=== PATIENT | female | born 1955 | race Caucasian/White ===

== ENCOUNTER → 2018-12-05 | Outpatient (CLI) | payer OTHER ==
[~2018-12-05] VITALS: Ht 152.4 cm; Wt 124.7 kg
[~2018-12-05] MED LIST: ADVAIR 250-501 EACH INH; ALBUTEROL NEB; CELEBREX 200 M200 M1 PO; CELEXA PO; CLONAZEPAM 0.50.5 M1 PO; CLONAZEPAM PO; CYMBALTA PO; CYMBALTA60 MG PO; DESYREL50 MG; DESYREL50 MG PO; ESTRADIOL 1 MG T1 M1 PO; FLEXERIL PO; FLONASE NS; GLUCOPHAGE XR500 MG PO; HYDROCODON-ACE1 EAC7; LAMICTAL PO; LAMICTAL100 MG PO; LEVAQUIN 500 M500 MG PO; LIPITOR 20 MG T20 M1 PO; LISINOPRIL30 MG PO; LISINOPRIL40 MG PO; METHOTREXATE 22.5 MG PO; NORCO 5-325 TA1 EACH PO; PHENERGAN 25 MG25 M1 PO; PREDNISONE 5 MG5 M1 PO; PROAIR HFA8.5 GM INH; PROTONIX40 M1 PO; PROTONIX40 M2 PO; SUDAFED30 MG PO; SYNTHROID PO; VENTOLIN HFA 1818 GM INH; XOPENEX HF1 UDINHALE; ZYRTEC 10 MG TA10 MG PO; ZYRTEC10 M4 PO; [UNRECOGNIZED DRUG - OTHER] PO
--- NOTE | ~2018-12-05 | HPC ---
[facility] [address] [place] [address] PAIN MANAGEMENT CONSULTATION Name: FRANCO PEREIRA Room #: REG TATY Regalado.#: [id number] Admission: 12/05/18 ������������������ Attend Phys: Grey Oh DO Discharge: ������������������ Date of : 59 Report #: [id number] THIS REPORT FOR: //name// CC: Grey Pineda DATE OF SERVICE: 12/05/2018 CHIEF COMPLAINT: Low back pain, bilateral buttock and posterolateral thigh pain. HISTORY OF PRESENT ILLNESS: As you know, the patient is a severely morbidly obese 63-year-old female who reports longstanding history of low back pain that began 12/07/2014. The patient denies specific injury or trauma that may have led to symptom occurrence. She is treated by Dr. Miguel Ángel Friedman for rheumatoid arthritis. The patient continued to complain of axial back pain that did not respond to conservative treatment. The patient ultimately underwent MRI of the lumbar spine, which showed mild disk bulge at L2-L3, minimal narrowing of the neural foramen, minimal narrowing of the lateral recess, no nerve root impingement, no central canal stenosis at L3-L4, mild disk bulge, mild lateral endplate ridging, mild facet arthropathy, moderate neural foraminal stenosis, no central canal stenosis. L4-L5, there is noted a mild disk bulge, moderate left neural foraminal stenosis, [id number] right neural foraminal stenosis. There is mild localized epidural lipomatosis. There is appearing to be mildly deformed thecal sac, which may be related to an epidural injection, though the patient indicates no epidural injection in the past. L5-S1 is unremarkable. Due to lack of improvement with conservative treatment options, the patient was referred to our clinic to trial epidural injection under fluoroscopic guidance to determine if her symptoms would be improved with such procedure. The patient indicates pain is continuous, describes the pain as sharp and stabbing, places current pain score at 8/10, daily average is 7-8/10, worst pain has been is 10/10. The patient states that standing and walking exacerbate symptoms, lying down tends to improve pain. She has been referred to our service to discuss treatment options. PAST MEDICAL HISTORY: 1. Rheumatoid arthritis. 2. Severe morbid obesity. 3. Asthma. 4. Hypertension. 5. Chronic colon problems. 6. Multiple emotional problems. 7. Osteoarthritis. 8. Dyslipidemia. [address] [address] PAIN MANAGEMENT CONSULTATION Name: FRANCO PEREIRA Room #: REG TATY Scooter#: [id number] Admission: 12/05/18 ������������������ Attend Phys: Grey Oh DO Discharge: ������������������ Date of : 59 Report #: [id number] PAST SURGICAL HISTORY: 1. Eye surgery bilaterally. 2. Laparoscopy with ovarian excision. 3. Hysterectomy. 4. Colectomy. 5. Total left knee arthroplasty. 6. Total right knee arthroplasty. SOCIAL HISTORY: The patient denies tobacco, alcohol, IV or illicit drug use. She is on disability, has been so for 10 years. She receives disability income, is not in litigation in regards to pain, unaccompanied today. REVIEW OF SYSTEMS: Positive for fatigue and weakness, wearing corrective eyewear, cataracts, frequent and recurrent coughs, asthma, rectal bleeding, nocturia, incontinence, dribbling to urine, change in hair and nail texture, nervousness, thyroid disease, frequent urination, bruising, severe morbid obesity, chronic low back pain. All other review of systems is negative per 12-point review of systems other than those listed in history of present illness. ALLERGIES: ADHESIVE TAPE, AMOXICILLIN, MELOXICAM, PREGABALIN. CURRENT MEDICATIONS: Metformin 1000 mg b.i.d., clonazepam 0.5 mg b.i.d., cyclobenzaprine 10 mg t.i.d., albuterol 2 puffs q.4h. p.r.n., Zyrtec 10 mg per day, lisinopril 30 mg per day, prednisone 5 mg per day, duloxetine 60 mg per day, celecoxib 200 mg once a day, atorvastatin 20 mg per day, estradiol 1 mg per day, methotrexate mg per week, hydrocodone/acetaminophen 5/325 two tabs every 4 hours p.r.n. for pain, Levaquin 500 mg per day, Synthroid 200 mcg per day, Desyrel 50 mg once a day, Advair 250/50 one puff b.i.d., Zestril 40 mg per day, pantoprazole 40 mg per day, Lamictal 100 mg b.i.d. IMAGING: MRI lumbar spine shows mild disk bulging at L2-L3, L3-L4, L4-L5. There is a [id number] foraminal stenosis at L2-L3, L3-L4 and L4-L5 shows moderate foraminal stenosis, no central canal stenosis. PQRS: The patient has osteoarthritic changes dealt with surgically from the bilateral knees, bilateral ankles remain arthritic, bilateral hips and low back. She does have a history of rheumatoid arthritis being treated by her PCP. Pain intensity today 8/10. She is a fall risk, but has not had a fall in the last 3 months. She is not on blood thinners. She is treated for hypertension. She is on opioids and reportedly has a low opioid addiction potential. She is placing pain impact score 36/70 indicating moderate interference of daily activities secondary to pain. PHYSICAL EXAMINATION: [facility] [address] [place] [address] PAIN MANAGEMENT CONSULTATION Name: FRANCO PEREIRA Room #: REG [facility]#: [id number] Admission: 12/05/18 ������������������ Attend Phys: Grey Oh DO Discharge: ������������������ Date of : 59 Report #: [id number] VITAL SIGNS: Blood pressure 160/75, pulse 87, respiratory rate 20 and unlabored. The patient is 95% on room air. Height 5 feet tall, weight 275 pounds, BMI calculated 53.7. GENERAL: Well-developed, well-nourished, well-hydrated, severely morbidly obese 63-year-old female, appears older than stated age, placing pain score around 8/10. HEENT: Normocephalic, atraumatic. Pupils equal, round, reactive to light. Extraocular muscles are intact. Sclerae nonicteric without injection. NEUROLOGIC: Speech is fluent. The patient deemed a good historian. LUNGS: Clear. No wheeze, rhonchi or rales. CARDIOVASCULAR: Regular. No appreciable gallop, no rub. ABDOMEN: Soft. Severely obese, normoactive bowel sounds. EXTREMITIES: Show no clubbing, no cyanosis, 1+ nonpitting lower extremity edema noted. MUSCULOSKELETAL: The patient has a palpatory tenderness over the paraspinal musculature of lower lumbar spine, no spinous process tenderness. Seated straight leg raising negative. Supine straight leg raising equivocal due to body habitus. The patient is unable to reach greater than 70-degree maneuver. Ankle clonus negative. Babinski is negative. Gait is antalgic. Stance slightly forward flex lumbar spine, no loss of lordotic curvature. Lumbar provocation testing is met with increased pain with all maneuvers. Moderate restriction of motion. ASSESSMENT: 1. Symptomatic lumbar radiculopathy. 2. Lumbosacral spondylosis with radiculopathy. 3. Lumbar degeneration. 4. Severe morbid obesity. 5. Chronic intractable pain. PLAN: 1. The patient has been referred to our service by her primary care physician, Dr. Miguel Ángel Friedman who treats the patient for rheumatoid arthritis for evaluation for low back pain and lower extremity symptoms. I am pleased to advise the patient based on her recent MRI, there are minimal findings within the lumbar region. She has moderate foraminal stenosis at the L4-L5 levels typical for aged individual. This is surprisingly mild in its presentation given the patient's excessive body habitus. I believe her weight is a significant contributor to the patient's overall pain. Her BMI today was 53.7, nearly double in individual of her height. This weight is causing excessive compressive forces on the lower lumbar spine and causing hyperlordotic curvature that is causing increased facet arthropathy pain. The patient and I had a very long discussion about treatment options. Based on her presentation today, we discussed the following with the patient. 2. The patient was advised that physical therapy, stretching exercise, core strengthening and a concerted effort at weight loss will be the cornerstone of [address] [address] PAIN MANAGEMENT CONSULTATION Name: FRANCO PEREIRA Room #: REG CLErma Helms#: [id number] Admission: 12/05/18 ������������������ Attend Phys: Grey Oh DO Discharge: ������������������ Date of : 59 Report #: [id number] treatment. I do feel that her weight is a significant contributor to her overall symptoms and will need to be addressed appropriately. If the patient cannot lose weight in the standard dieting fashion with exercise, then Bariatric Surgery consultation must be obtained. Her back pain will not improve unless we are able to offload a good portion of this patient's centripetal weight. We discussed suggestions of medication management to her primary care physician. Certainly, the addition of a neuropathic pain medication could be beneficial. Adjustments also in her anti-inflammatory medications may be helpful. We discussed epidural injection to help with her ongoing pain, though this will only provide temporary improvement in symptoms if the weight is not dealt with appropriately. We discussed the possibility of having the patient look towards intraarticular facet injection, though given the findings on the x-ray imaging, it does not appear that these are the major source of the symptoms at present. We also discussed surgical options, though given her weight, she is not a candidate. After this discussion with the patient, the patient chose to move forward with the lumbar epidural injection. 3. The patient was advised risks and benefits of a lumbar epidural injection. These risks include but are not necessarily limited to bleeding, bruising, infection, worsening pain, no relief of pain, also risk of temporary or permanent muscle weakness, temporary or permanent nerve damage, possible paralysis and . The patient states she understood and wished to proceed. 4. No medication changes made at today's visit. The patient will continue current medical therapy as previously prescribed. 5. We will see the patient back in followup visit on an as needed basis for the possible next in the series of lumbar epidural injections. I have requested that the patient contact her PCP in regards to a nutritional consultation, exercise consultation and possibly even bariatric consultation. The patient will follow up with this at her earliest convenience. 6. We wish to thank Dr. Friedman for the referral of this patient to our clinic. We will keep you apprised of her response to treatment as we address her axial back pain and lower extremity symptoms. Again, we wish to thank you for the opportunity to see the patient in consultation. ��������������������������������������������� ���������������������������������������� By: ��������������������������������������������� 0800 05 Grey Oh DO /nt
--- NOTE | ~2018-12-05 | P ---
[facility] [address] [place] [address] PROCEDURE REPORT Name: KELLIFRANCO MARCOS Room #: REG TATY Helms#: [id number] Admission: 12/05/18 ������������������ Attend Phys: Grey Oh DO Discharge: ������������������ Date of : 59 Report #: [id number] THIS REPORT FOR: //name// CC: Grey Pineda DATE OF SERVICE: 12/05/2018 DESCRIPTION OF PROCEDURE: L5-S1 interlaminar epidural steroid DICTATION ENDS HERE. ��������������������������������������������� ���������������������������������������� By: ��������������������������������������������� 0800 07 Grey Oh DO /nt
--- NOTE | ~2018-12-05 | P ---
[facility] [place] [address] [address] [place] [address] PROCEDURE REPORT Name: FRANCO PEREIRA Room #: REG [facility].#: [id number] Admission: 12/05/18 ������������������ Attend Phys: Grey Oh DO Discharge: ������������������ Date of : 59 Report #: [id number] THIS REPORT FOR: //name// CC: Grey Pineda DATE OF SERVICE: 12/05/2018 PROCEDURE PERFORMED BY: Grey Oh DO PREPROCEDURAL DIAGNOSIS: L5-S1 interlaminar epidural steroid injection under fluoroscopic guidance. This is the first procedure of the first series that the patient is undergoing. After obtaining written consent, the patient was taken back to the fluoroscopy suite, placed in a prone position with pillow under the abdomen to decrease lumbar lordosis. The skin overlying the lumbosacral area was then prepped and draped in aseptic fashion. The L5-S1 vertebral interspace was then identified by AP fluoroscopy. The skin and subcutaneous tissue overlying the target site of injection was anesthetized with 3 mL 1% lidocaine. A(n) 20-gauge 6-inch Tuohy needle was then advanced under fluoroscopic guidance towards the epidural space using a paramedian approach. The epidural space was identified using loss of resistance to air technique. After negative aspiration for heme or cerebrospinal fluid, a total of 1 mL of Omnipaque was injected. A lumbar epidurogram was confirmed using both AP and lateral fluoroscopy. After negative aspiration for heme or cerebrospinal fluid, 5 mL of a solution containing 2 mL, 40 mg per mL, 80 mg total triamcinolone, 3 mL lidocaine 1% was injected in increments. Contrast spread was noted in the posterior epidural space. The needle was then retracted approximately half way and needle tract flushed with 1 mL of 1% lidocaine. Needle was then removed. There were no apparent sensory or motor deficits in the lower extremity following the procedure. A sterile bandage was placed over the injection site. The heart rate, pulse, oximetry and blood pressure were continuously monitored after the procedure. There were no apparent complications. The patient tolerated the procedure well and was carefully escorted to the recovery room in stable condition. There were no apparent complications. After meeting discharge criteria, the patient was then discharged home. ��������������������������������������������� ���������������������������������������� By: ��������������������������������������������� 0802 1914 Grey Oh DO /nt
[2018-12-05 14:22] VITALS: BP 160/76
[2018-12-05 14:26] VITALS: BP 160/75
--- NOTE | 2018-12-05 15:01 | NUR ---
Pain Clinic Assessment: 1. History of Osteoarthritis: knees hands History of Rheumatoid Arthritis: hands ankles 2. Height: 5 ft. 0 in. 152.4 cm. Weight: 275.0 lb. oz. 124.740 kg. Patient's BMI: 53.7 3. Vital Signs: BP: 160/75 Pulse: 87 Resp: 20 Temp: 02 Sat: 95 ECG Mon: 4. Pain Intensity: 8 5. Fall Risk: Dizziness: Y Needs help standing or walking: N Fallen in the last 3 months: N Fall risk comments: 6. Patient on Blood Thinner: None 7. History of Hypertension: Y 8. Opioid Therapy greater than 6 weeks: N Opiate Contract Signed: 9. Risk Assessment Tool Provided: 1 low 10. Functional Assessment Tool: 11. Recreational Drug Use: Never Drug Type: Tobacco Use: Never Smoker Tobacco Type: Amount or Packs/day: How Many Years: Alcohol Use: No Frequency: Quant:
== END | disposition home or self-care (01) ==
LOC: PAIN 06:56
DX: M51.16 Intervertebral disc disorders with radiculopathy, lumbar region (principal); M47.27 Other spondylosis with radiculopathy, lumbosacral region; G89.29 Other chronic pain; I10 Essential (primary) hypertension; E78.5 Hyperlipidemia, unspecified; M19.90 Unspecified osteoarthritis, unspecified site; E66.01 Morbid (severe) obesity due to excess calories; M06.9 Rheumatoid arthritis, unspecified; F32.9 Major depressive disorder, single episode, unspecified; J45.909 Unspecified asthma, uncomplicated; Z68.43 Body mass index [BMI] 50.0-59.9, adult; Z79.899 Other long term (current) drug therapy; Z79.891 Long term (current) use of opiate analgesic; Z88.0 Allergy status to penicillin; Z90.710 Acquired absence of both cervix and uterus; Z98.0 Intestinal bypass and anastomosis status; Z96.653 Presence of artificial knee joint, bilateral; Z98.890 Other specified postprocedural states

== ENCOUNTER → 2019-02-06 | Outpatient (CLI) | payer OTHER ==
[~2019-02-06] VITALS: Ht 152.4 cm; Wt 131.5 kg
[~2019-02-06] MED LIST changes: -CYMBALTA PO; +DICLOFENAC SOD50 M1 PO; -SYNTHROID PO; +SYNTHROID200 MCG PO
--- NOTE | ~2019-02-06 | HPC ---
[facility] [place] [address] [address] [place] [address] PAIN MANAGEMENT CONSULTATION Name: FRANCO PEREIRA Room #: REG TATY Regalado.#: [id number] Admission: 02/06/19 ������������������ Attend Phys: Grey Oh DO Discharge: ������������������ Date of : 59 Report #: [id number] THIS REPORT FOR: //name// CC: Grey Pineda DATE OF SERVICE: 02/06/2019 CHIEF COMPLAINT: Low back pain, bilateral buttock and posterolateral thigh pain. HISTORY OF PRESENT ILLNESS: As you know, the patient is severely morbidly obese 63-year-old female, reporting longstanding history of low back pain that began on 12/07/2014. Denies any specific injury or trauma that may have led to symptom occurrence. She underwent a lumbar epidural injection under fluoroscopic guidance at our initial visit with only 20% improvement in overall pain. She returns today in followup visit stating a pain level of 7/10. She reports the 20% improvement was only lasting for a couple of days. She returns to discuss treatment options. As you are aware, the patient is followed by Dr. Miguel Ángel Friedman for rheumatoid arthritis, likely contributor to the symptoms the patient is experiencing. The foraminal stenosis noted at the L4-L5 level is only moderate in nature and does not appear to be the source of the patient's pain given the lack of efficacy with the epidural injection. Due to the fact the patient received 20% improvement in overall pain, she is now precluded from undergoing any future epidural injections as she needs to show 50% improvement to continue this type of treatment. ALLERGIES: ADHESIVE TAPE, AMOXICILLIN, MELOXICAM, PREGABALIN. CURRENT MEDICATIONS: See extensive list in chart. SOCIAL HISTORY: The patient denies tobacco, alcohol, IV or illicit drug use. She is on disability. She has been so for 10 years. She is unaccompanied today. IMAGING: No new imaging available. PQRS: The patient has known arthritic changes of the bilateral knees, bilateral ankles, lumbar spine, bilateral hips. She does have a history of rheumatoid arthritis and being treated. She is placing pain intensity of 7/10. She is not a fall risk, has not had a fall in the last 3 months. She is not on blood thinners, but is treated for hypertension. She is not on chronic opioids, but does have a low opioid addiction potential based on our testing. Pain impact score 36/70 indicating moderate interference of daily activities secondary to pain. [address] [address] PAIN MANAGEMENT CONSULTATION Name: FRANCO PEREIRA Room #: REG CLI [facility]#: [id number] Admission: 02/06/19 ������������������ Attend Phys: Grey Oh DO Discharge: ������������������ Date of : 59 Report #: [id number] PHYSICAL EXAMINATION: VITAL SIGNS: Blood pressure 161/77, pulse 93, respiratory rate 20 and unlabored. The patient is 96% on room air. Height 5 feet tall, weight 290 pounds, BMI calculated 56.6. GENERAL: Well-developed, well-nourished, well-hydrated, severely morbidly obese 63-year-old female appearing stated age, pain is rated at 7/10. HEENT: Normocephalic, atraumatic. Pupils equal, round, reactive to light. Speech fluent. EXTREMITIES: Show no clubbing, no cyanosis. There is 1+ nonpitting lower extremity edema noted bilaterally. MUSCULOSKELETAL: Tenderness to palpation is once again noted over the paraspinal musculature of lower lumbar spine. No spinous process tenderness. Seated straight leg raising negative. Supine straight leg raising is equivocal due to body habitus. Unable to test fully. Ankle clonus negative. Babinski is negative. Gait antalgic. Stance, slightly forward flexed lumbar spine, loss of lordotic curvature, moderate restriction in motion with provocation testing of the lumbar spine. ASSESSMENT: 1. Severe morbid obesity. 2. Lumbosacral spondylosis with radiculopathy. 3. Symptomatic lumbar radiculopathy. 4. Lumbar degeneration. 5. Chronic intractable pain. PLAN: 1. The patient returns today in followup visit. Unfortunately, noticing only transient improvement in symptoms with the epidural injection provided at last visit. We have reviewed with the patient the findings of her MRI. I also discussed the findings from our x-ray imaging and indicated that a repeat epidural injection would not be of benefit given the lack of long-term efficacy. The patient would need to have 50% improvement in overall pain lasting for at least a week to 2 weeks to initiate the next in the series of epidural injections. I have advised the patient of such today. 2. The patient does appear to be suffering mainly from facet arthropathy of the lower lumbar spine. Her severe morbid obesity is contributing significantly to this issue. We would recommend a rotation in her anti-inflammatory medications with the understanding that weight loss and concerted effort at strength training would be the most effective treatment option given the lack of any radicular symptoms at this point. 3. The patient was provided prescription of diclofenac 50 mg dose. Recommend 1 tab p.o. t.i.d. She is not to take any other anti-inflammatories with this medication. She is to watch for side effects of dyspepsia, worsening of blood pressure, lower extremity edema. If she notes any side effects, discontinue immediately and call for further instructions. She was given #90 tablets, 2 [facility] [address] [place] [address] PAIN MANAGEMENT CONSULTATION Name: FRANCO PEREIRA Room #: REG TATY Regalado.#: [id number] Admission: 02/06/19 ������������������ Attend Phys: Grey Oh DO Discharge: ������������������ Date of : 59 Report #: [id number] refills, 3 months' worth of medications. She can follow up with her PCP to continue this therapy if she finds it beneficial. 4. We recommend strongly the patient look into a weight loss program whether this be surgical weight loss or a diet-controlled and exercise control weight loss program. It is up to the patient. I will defer to the primary team for referrals to bariatric surgery work to dietary professionals to assist in weight loss. The patient's BMI is 56.6, nearly double appropriate body habitus for an individual, her height. Without this weight loss, her back pain will not be treatable successfully. 5. We will see the patient back in followup visit on an as-needed basis. If we do see the patient back, we will keep you apprised of her response to any treatments deemed necessary. ��������������������������������������������� ���������������������������������������� By: ��������������������������������������������� 1416 25 Grey Oh DO /nt
[2019-02-06 09:47] VITALS: BP 161/77
--- NOTE | 2019-02-06 09:52 | NUR ---
Pain Clinic Assessment: 1. History of Osteoarthritis: knees hands History of Rheumatoid Arthritis: hands ankles 2. Height: 5 ft. 0 in. 152.4 cm. Weight: 290.0 lb. oz. 131.544 kg. Patient's BMI: 56.6 3. Vital Signs: BP: 161/77 Pulse: 93 Resp: 20 Temp: 02 Sat: 96 ECG Mon: 4. Pain Intensity: 7 5. Fall Risk: Dizziness: N Needs help standing or walking: N Fallen in the last 3 months: N Fall risk comments: 6. Patient on Blood Thinner: None 7. History of Hypertension: Y 8. Opioid Therapy greater than 6 weeks: N Opiate Contract Signed: 9. Risk Assessment Tool Provided: 1 low 10. Functional Assessment Tool: 11. Recreational Drug Use: Never Drug Type: Tobacco Use: Never Smoker Tobacco Type: Amount or Packs/day: How Many Years: Alcohol Use: No Frequency: Quant:
== END ==
LOC: PAIN 01-02 09:35
DX: M47.26 Other spondylosis with radiculopathy, lumbar region (principal); E66.01 Morbid (severe) obesity due to excess calories; G89.29 Other chronic pain; M51.16 Intervertebral disc disorders with radiculopathy, lumbar region

== ENCOUNTER → 2019-05-08 | Outpatient (CLI) | payer OTHER ==
[~2019-05-08] VITALS: Ht 152.4 cm; Wt 128.7 kg
[~2019-05-08] MED LIST changes: +NORCO 10-325 T1 EACH PO; +XELJANZ XR11 MG PO
--- NOTE | ~2019-05-08 | HPC ---
[facility] [address] [address] PAIN MANAGEMENT CONSULTATION Name: FRANCO PEREIRA Room #: REG Erma Tere.#: [id number] Admission: 05/08/19 Attend Phys: Dilia Presley Discharge: Date of : 59 Report #: [id number] THIS REPORT FOR: //name// CC: Dilia Pineda DO DATE OF SERVICE: 05/08/2019 CHIEF COMPLAINT: Low back pain, bilateral buttock pain, bilateral leg pain. HISTORY OF PRESENT ILLNESS: This is a 63-year-old female who is morbidly obese, who returns to the pain clinic today for followup visit from her surgeon and for refill of her diclofenac. The patient reports a pain score of 7/10 today, on her left lower back that radiates into her left buttock, also down her posterior bilateral legs. It is a sharp, stabbing, tender pain, worse with walking for more than 5 minutes or standing. It is better with sitting and lying down and she tells me it is also better with hydrocodone 10/[address] Toro wrote for her. She tells me that sometimes she feels kind of fuzzy in the head when she takes this medicine, but it does relieve her pain. She reports that the diclofenac that Dr. Grey Oh gave her did not help relieve any of her pain and she quit taking it. The patient would like a refill of the hydrocodone today that Dr. Toro wrote for her. The patient has started doing Weight Watchers at home watching her points and has lost 8 pounds since her last visit with her. She is also trying to walk more to decrease her weight. ALLERGIES: ADHESIVE TAPE, AMOXICILLIN, MELOXICAM, LYRICA. MEDICATIONS: Please see extensive list. PQRS: 1. She has known arthritic changes in her knees and ankles, spine and hips. She does have a history of rheumatoid arthritis and is being treated by Dr. Friedman. 2. Height is 5 feet, weight is 283, BMI is 55. 3. Vital signs 159/89, pulse is 83, respirations 20, oxygen sat is 97. 4. Pain score 7/10. 5. Complains of dizziness, has not fallen. Does not need help standing or walking. 6. The patient is not on any blood thinners, but does take medicines for hypertension. 7. The patient has been on opioids lately. Her risk assessment tool is low. Functional assessment is 36/70. 8. Recreational drug use, she denies. She is not [place] [address] PAIN MANAGEMENT CONSULTATION Name: FRANCO PEREIRA Room #: REG [facility] Scooter#: [id number] Admission: 05/08/19 Attend Phys: Dilia Presley Discharge: Date of : 59 Report #: [id number] alcohol. We did check the prescription monitoring system. The patient did fill hydrocodone from Dr. Toro in March. PHYSICAL EXAMINATION: GENERAL: This is a well-developed, well-nourished, well-hydrated severely morbidly obese 63-year-old female who appears her stated age. HEENT: Normocephalic, atraumatic. Extraocular eye muscles are intact. Mucous membranes are moist. EXTREMITIES: No clubbing, no cyanosis, nonpitting edema of 1+ in her lower extremities. MUSCULOSKELETAL: She has tenderness over her paraspinal muscular of the lumbar spine on the left side, pain in her left buttock that radiates down left leg following the L4-L5 and L5-S1 distribution. The patient's gait is antalgic. Straight leg raising is positive on the left leg and lower back. Provacation testing increases pain with all maneuvers. ASSESSMENT: 1. Severe morbid obesity. 2. Lumbosacral spondylosis with radiculopathy. 3. Symptomatic lumbar radiculopathy. 4. Lumbar degeneration. 5. Chronic intractable pain. 6. Spondylolithesis of the lumbar region 7. Discogenic pain PLAN: 1. The patient returns for followup visit under our understanding for diclofenac refill. The patient told me that she does not find that very beneficial in controlling her pain, was requesting hydrocodone that Dr. Toro has started her on. I did speak with Dr. Grey Oh. He is not willing to refill that medication per the dictation notes of Dr. Jensen Toro. It looks like he is requesting a disk block. I explained this to the patient that we would seek authorization if she would like for an L3-L4 or L4-L5 disk block to see which disk generates more pain, so she can return to Dr. Toro for further discussion about possible surgery. We will seek authorization for a discogram of the Left L4-L5 disk and schedule the patient once approved. 2. She would just like a refill of her narcotic medication. I explained to her again that Dr. Grey Oh would not be writing this medication for her, that she may return to Dr. Toro's office for refills of that medication. The patient then explained that she is willing to have this procedure done so we [address] [address] PAIN MANAGEMENT CONSULTATION Name: FRANCO PEREIRA Room #: REG TATY RegaladoTere#: [id number] Admission: 05/08/19 Attend Phys: Dilia Presley Discharge: Date of : 59 Report #: [id number] will seek authorization and left with no prescriptions. 3. The patient is seen in collaboration today with Dr. Grey Oh. By: [id number] Dilia Presley /gregorio
[2019-05-08 08:43] VITALS: BP 159/89
--- NOTE | 2019-05-08 09:03 | NUR ---
Pain Clinic Assessment: 1. History of Osteoarthritis: knees hands History of Rheumatoid Arthritis: hands ankles 2. Height: 5 ft. 0 in. 152.4 cm. Weight: 283.8 lb. oz. 128.731 kg. Patient's BMI: 55.4 3. Vital Signs: BP: 159/89 Pulse: 83 Resp: 20 Temp: 02 Sat: 97 ECG Mon: 4. Pain Intensity: 7 5. Fall Risk: Dizziness: Y Needs help standing or walking: N Fallen in the last 3 months: N Fall risk comments: 6. Patient on Blood Thinner: None 7. History of Hypertension: Y 8. Opioid Therapy greater than 6 weeks: N Opiate Contract Signed: 9. Risk Assessment Tool Provided: 1 low 10. Functional Assessment Tool: 11. Recreational Drug Use: Never Drug Type: Tobacco Use: Never Smoker Tobacco Type: Amount or Packs/day: How Many Years: Alcohol Use: No Frequency: Quant:
== END ==
LOC: PAIN 06:50
DX: M47.27 Other spondylosis with radiculopathy, lumbosacral region (principal); M43.16 Spondylolisthesis, lumbar region; E66.01 Morbid (severe) obesity due to excess calories; M51.16 Intervertebral disc disorders with radiculopathy, lumbar region; G89.4 Chronic pain syndrome; Z88.8 Allergy status to other drugs, medicaments and biological substances; Z91.048 Other nonmedicinal substance allergy status; Z88.0 Allergy status to penicillin